=== PATIENT | female | born 1990 | race Caucasian/White ===

== ENCOUNTER 2018-04-12 16:24 | Emergency (ER) | payer OTHER ==
[~2018-04-12] VITALS: Ht 165.1 cm; Wt 58.1 kg
[2018-04-12] MEDS ORDERED: FOLIC ACID1 MG (16:47)
== END 2018-04-12 20:46 | disposition home or self-care (01) ==
LOC: ER 16:24
DX: O26.851 Spotting complicating pregnancy, first trimester (principal); Z34.01 Encounter for supervision of normal first pregnancy, first trimester

== ENCOUNTER 2018-11-29 17:33 | Inpatient (IN) | payer OTHER ==
[~2018-11-29] VITALS: Ht 160 cm; Wt 153.0 kg
[~2018-11-29 17:33] MED LIST: FOLIC ACID1 MG
[2018-11-29] MEDS ORDERED: VALTREX1000 MG PO (18:28)
[2018-11-29] MEDS ORDERED: PRENATAL 19 TA1 EACH PO (18:29)
== END 2018-12-03 14:12 | disposition home or self-care (01) | DRG 788 ==
LOC: LDR 17:33 → OB/GYN 17:33 → LDR 17:42 → O/R 11-30 18:29 → OB/GYN 11-30 19:30
PROVIDERS: ADMIT Obstetrics & Gynecology
PROC: 4A1HXCZ Monitoring of Products of Conception, Cardiac Rate, External Approach (ICD-10-PCS; 2018-11-29)
PROC: 10D00Z1 Extraction of Products of Conception, Low, Open Approach (ICD-10-PCS; principal; 2018-11-30 18:00)
DX: O76 Abnormality in fetal heart rate and rhythm complicating labor and delivery (principal); O64.0XX0 Obstructed labor due to incomplete rotation of fetal head, not applicable or unspecified; Z3A.39 39 weeks gestation of pregnancy; Z37.0 Single live birth